=== PATIENT | female | born 1995 | race Caucasian/White ===

== ENCOUNTER 2019-03-12 21:17 | Emergency (ER) | payer SELFPAY ==
[~2019-03-12] VITALS: Ht 165.1 cm; Wt 72.6 kg
--- NOTE | 2019-03-12 21:17 | NUR ---
JAVED ZAPATA, PREBOOK. TAKEN TO CHAIR B
[2019-03-12 21:18] VITALS: BP 110/71
--- NOTE | 2019-03-12 21:22 | NUR ---
Dr. Gonzalez examining patient.
--- NOTE | 2019-03-12 21:23 | NUR ---
PT MOVED TO BED 5.
[2019-03-12] MEDS ORDERED: IBUPROFEN 800 MG TAB PO ONE (21:30)
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
--- NOTE | 2019-03-12 21:35 | NUR ---
PT OFFERED PAIN MEDICATION, PT IS DECLINING PAIN MEDICATION AT THIS TIME UNTIL RESULTS COME BACK. ERMD AWARE.
--- NOTE | 2019-03-12 21:43 | NUR ---
X-Ray at bedside.
[2019-03-12 23:05] VITALS: BP 118/68
--- NOTE | 2019-03-12 23:05 | NUR ---
Patient discharged with v/s stable. Patient acting appropriatly, speaking in clear and complete sentences; states 0/10 pain at this time. Written and verbal after care instructions given and explained. Patient alert, oriented and verbalized understanding of instructions. Ambulatory left with Louise ZAPATA in custody. All questions addressed prior to discharge. ID band removed. Patient advised to follow up with PMD. Rx of Ibuprofen given. Patient educated on indication of medication including possible reaction and side effects. Opportunity to ask questions provided and answered.
== END 2019-03-12 23:05 ==
LOC: MED 21:17
DX: S50.12XA Contusion of left forearm, initial encounter (principal); S40.021A Contusion of right upper arm, initial encounter; S70.11XA Contusion of right thigh, initial encounter; M25.531 Pain in right wrist; F17.210 Nicotine dependence, cigarettes, uncomplicated; Y04.8XXA Assault by other bodily force, initial encounter; Y93.89 Activity, other specified; Y92.89 Other specified places as the place of occurrence of the external cause; Y99.8 Other external cause status
CPT/HCPCS: 36415; 73110; 81025; 84702; 99284